=== PATIENT | male | born 1940 | race Caucasian/White ===

== ENCOUNTER 2022-06-23 21:34 | Inpatient (IN) | payer OTHER, SELFPAY ==
[2022-06-23] VITALS (11 sets, daily range): BP systolic 86–119; BP diastolic 53–82; BMI 26.1
[2022-06-23 17:02] LABS: % Basophils 0.5 % (0-2); % Eosinophils 3.6 % (0-6); % Immature Granulocytes 0.5 % (0-0.5); % Lymphocytes 17.3 % (20.5-51.1); % Monocytes 9.3 % (1.7-9.3); % Neutrophils 68.8 % (42.2-75.2); Absolute Eosinophils 0.3 10^3/uL (0-0.7); Absolute Lymphocytes 1.4 10^3/uL (1.2-3.4); Absolute Monocytes 0.8 10^3/uL (0.1-0.6); Absolute Neutrophils 5.7 10^3/uL (1.4-6.5); Hematocrit 40.8 % (39.0-52.0); Hemoglobin 13.9 g/dL (13.0-18.0); Mean Corp Hgb Conc. 34.1 g/dL (33.0-37.0); Mean Corpuscular Hgb 34.3 pg (27.0-31.0); Mean Corpuscular Volume 100.7 fL (80.0-94.0); Mean Platelet Volume 9.6 fL (7.4-10.4); Nucleated Red Blood Cells % 0 % (-); Platelet Count 339 10^3/uL (130-400); Red Blood Cell Count 4.05 10^6/uL (4.70-6.10); Red Cell Dist. Width 13.8 % (11.5-14.5); White Blood Cell Count 8.3 10^3/uL (4.8-10.8)
[2022-06-23 17:15] LABS: ALT (SGPT) 21 U/L (0-50); Blood Urea Nitrogen 34 mg/dl (9-20); Calcium 8.9 mg/dl (8.4-10.2); Carbon Dioxide 27 mmol/L (22-30); Chloride 100 mmol/L (98-107); Estimated Creatinine Clearance 41 ml/min; Glomerular Filtration Rate 57.7; Glucose 149 mg/dl (65-99); Sodium 135 mmol/L (135-145); Total Bilirubin 1.1 mg/dl (0.2-1.3)
[2022-06-23 17:16] LABS: AST (SGOT) 40 U/L (17-59); Albumin 3.5 g/dl (3.5-5.0); Alkaline Phosphatase 104 U/L (38-126); Potassium 4.8 mmol/L (3.5-5.1); Total Protein 7.4 g/dl (6.3-8.2)
[2022-06-23 17:23] LABS: Covid-19 RAPID by NAA Negative (Negative)
[2022-06-23 17:26] LABS: Troponin I < 0.012 ng/ml
[2022-06-23] MEDS: DUONEB 3 ML INH (17:28)
--- NOTE | 2022-06-23 17:35 | ED.GENMED ---
History of Present Illness
General
Chief Complaint: Breathing Problem
Source: patient, records, daughter and assisted records
Exam Limitations: none
Time Seen by Provider: 06/23/22 17:04
Nursing documentation reviewed up to this point in time: agreed with
Travel History
Have you had any contact with someone who has COVID-19?: No
Do you have any symptoms of coronavirus? Fever > 100 degrees, chills, cough, shortness of breath, sore throat, loss of taste or smell, muscle aches, or headache?: Yes
Symptoms:: SOB
History of Present Illness
History of Present Illness:
Is an 82-year-old male with a history of of dementia, congestive heart failure, permanent atrial fibrillation, chronic kidney disease, aortic stenosis with mitral regurgitation, hypertension diabetes presents for increasing lethargy and apparent
shortness of breath today. Patient feels more congested. Patient denies any chest pain. Patient reportedly has not had any fever or chills. According to the patient's daughter he seems more lethargic and more congested than when he was
discharged 2 days ago. Patient reportedly has not had a fever. Patient has not had any vomiting or diarrhea. Patient denies any abdominal pain or nausea. Patient has noted his lower extremities to be more swollen. Patient has 2 different
medical record numbers and this was reported to registration
Past History
Past History
ED Past Medical History: Arrthythmia (Atrial fib), CHF, CVA, GERD, HTN, Hypercholesterolemia, IDDM and Other (Dementia, anemia, Lambert-Eaton syndrome, depression, chronic kidney disease, DNR)
ED Past Surgical History: Orthopedic (Knee replacement right)
Social History
Tobacco: Former smoker
Alcohol: None
Personal:
Living: assisted ([facility])
Review of Systems
Review of Systems
Unable to obtain full review of systems at this time due to: dementia
Constitutional: Reports fatigue; Denies fever or chills
EENT: Reports no symptoms
Respiratory: Reports cough and trouble breathing
Cardiac: Denies chest pain
ABD/GI: Denies abdominal pain, nausea, vomiting or diarrhea
: Reports no symptoms
Musculoskeletal: Reports edema
Neurological: Reports other (Increased lethargy)
Phy Exam
Physical Exam
Physical Exam:
Physical Exam
General: Mild to moderate distress, alert to verbal stimuli but appropriate, well nourished, well hydrated
HENT: Normocephalic, supple with no lymphadenopathy, no thyromegaly
Eyes: Clear sclera, conjuctiva without injection
Heart: ar irregular irregular rhythm and tachycardic rate. No S3, S4. Systolic murmur.. No NVD
Lungs: mild to moderate respiratory distress, no stridor, lung sounds with inspiratory and expiratory wheezing as well as rhonchi throughout but equal bilaterally
Abdomen: Soft, nontender, BS good
Neuro: Alert to verbal stimuli but appropriate, CN II - XII intact, no motor focality
Skin: no rash
Psychiatric: well kept. interactive and cooperative
Extremities: No cyanosis, tenderness. Bilateral pretibial, ankle and pedal edema
Scores
Heart Failure Risk
Heart Failure Risk Score: Not Applicable
Heart Score for Chest Pain Patients
STEMI patient?: Not applicable
Withdrawal Assessment of Alcohol
Withdrawal Assessment Completed?: Not applicable
Course
Orders/Labs/Results
Orders:
Orders
06/23/22 Dinner
1800 calorie (15 carb) Diabetic
At Your Request: Limited, Digital Camera Technician Required
Does patient need a safe tray?: No
Diabetic Diet: Sodium, 2 Gram
06/23/22 16:48
Electrocardiogram (*1) Urgent
Reason for Study: Shortness of Breath
EKG- Treatment ONCE
06/23/22 16:55
CMP [Comprehensive Metabolic Panel] Urgent
Complete Blood Count/With Diff Urgent
Covid-19 RAPID by JOSELITO Urgent
Source: Nasal Swab
Reason for Covid Test: Surveillance
NT-proBNP Urgent
Comment: ADD ON
Troponin I Urgent
Influenza A+B Rapid Molecular Urgent
UCHE Source: Nasal Swab
Specimen Description:
06/23/22 17:17
Ipratropium/Albuterol Sulfate [Duoneb] 3 ml INH R NOW ONE
06/23/22 17:18
CR Chest - 2 Views Urgent
Comment:
Reason For Exam: sob, congested
O2 Therapy [RESP] Urgent
Nasal Cannula Liter Flow: 2 LPM
06/23/22 17:20
Add On- LAB Urgent
Tests Added?: pro-bnp
06/23/22 19:14
Urinalysis Reflex To Culture Urgent
Date Specimen was Collected: 06/23/22
Time Specimen was Collected: 19:12
Urine Microscopic Reflex Cult Urgent
Urine Culture Urgent
UCHE Source: U
Specimen Description:
Date Specimen was Collected: 06/23/22
Time Specimen was Collected: 19:12
06/23/22 19:31
0.9% Sodium Chloride 500 ml [Nss] 500 ml IV BOLUS
Diltiazem HCl [Cardizem] 10 mg IV NOW STA
06/23/22 19:45
Diltiazem 125 mg/125 ml Nss [Cardizem] 125 mg in 125 ml IV PER PROTOCOL
Dose for Titration in mg/hr:: 5
Titrate to keep:: Heart rate 80-100 bpm
Titrate by mg/hr:: 5 mg/hr
Frequency of titrations (minutes):: 15
Maximum dose in mg/hr:: 15
06/23/22 21:14
Acetaminophen [Tylenol] 650 mg PO Q6HPRN PRN
Ipratropium/Albuterol Sulfate [Duoneb] 0.5 ml INH R BIDPRN PRN
06/23/22 21:16
Code Status As Directed
Resuscitation Status: Full Code
HF DIETARY CONSULT Routine
HF EDUCATOR CONSULT Routine
Comment:
VTE Contraindication Routine
VTE Mechanical Device Contraindication: Medical Contraindication
Pharmocologic Contraindication: Medical Contraindication
Activity As Directed
Activity Level: As Tolerated
Intake/ Output As Directed
Frequency: Per unit guidelines
Patient Education As Directed
Type: CHF folder
Comment: give on admission. Document in Interdisciplinary Education record
Sleep Apnea Assessment by RN As Directed
Comment:
Physician Instructions:
Vital Signs As Directed
Frequency: Per unit guidelines
Weight As Directed
Frequency: Daily
Type of Scale: Standing Scale
Comment: Daily morning weight. If unable to stand, use balanced bed scale.
Weight As Directed
Frequency: Once
Type of Scale: Standing Scale
Comment: Upon Admission. If unable to stand, use balanced bed scale.
O2 Therapy [RESP] Routine
Pulse Ox/cont/shift [RESP] Routine
Quantity: 1
Special Instructions: Daily pulse oximetry at rest. If greater than 92% at rest also obtain pulse oximetry
while ambulating as tolerated.
06/23/22 21:18
Echo 2D MMode Color/Doppler Routine
Reason for Study: heart failure
CARDIOLOGY CONSULT Routine
Consulting Provider: Baron Jerez
Was physician already notified: Yes
Reason for consult: AFIB RVR, CHF exacerbation
06/23/22 21:20
Bedside Glucose Monitoring As Directed
Frequency: AC&HS
06/23/22 21:26
Admit/Transfer Patient As Directed
Co-Sign Provider:
Level of Care: Inpatient admission
Assign to:: Telemetry
Physician / Group: Hospitalist
Diagnosis: AFIB RVR, HF, UTI
Reason for Telemetry: Medication for Arrhythmia
Date to Stop Telemetry: 06/25/22
Time to Stop Telemetry: 11:00
Reason for Hospitalization: AFIB RVR, CHF
Expected length of stay greater than two midnights?: Yes
ELOS- Estimated Length of Stay in days: 2
I certify the patient meets the requirements for IP care: Yes
06/23/22 21:30
CefTRIAXone [Rocephin] 1,000 mg IV NOW STA
06/23/22 22:00
Insulin Glargine Lantus [Lantus] 10 units Subcutaneous Insulin Syringe [Syringe-Insulin] 0 unit SC HS
06/24/22 06:00
Basic Metabolic Panel IN AM
Complete Blood Count/No Diff IN AM
Magnesium IN AM
06/24/22 07:30
Insulin Aspart Corrective Low [Novolog Flexpen-Low Resistance] See Protocol SC AC
06/24/22 08:00
Polyethylene Glycol Powder [Miralax] 17 grams PO DAILY
Potassium Chloride [KCl] 20 meq PO BID
Potassium Chloride [KCl] 20 meq PO DAILY
Sertraline HCl [Zoloft] 50 mg PO DAILY
06/24/22 18:00
Rivaroxaban [Xarelto] 15 mg PO QPM
06/24/22 22:00
CefTRIAXone [Rocephin] 1,000 mg IV Q24H
06/25/22 06:00
Basic Metabolic Panel IN AM
06/25/22 11:00
DC Protocol for Telemetry ONCE
DC Protocol for Telemetry ONCE
06/26/22 06:00
Basic Metabolic Panel IN AM
Abnormal Lab Results
06/23/22 06/23/22 06/23/22
16:55 16:55 19:14
RBC 4.05 10^6/uL L 10^6/uL
(4.70-6.10)
MCV 100.7 fL H fL
(80.0-94.0)
MCH 34.3 pg H pg
(27.0-31.0)
Absolute Monos (auto) 0.8 10^3/uL H 10^3/uL
(0.1-0.6)
Lymphocytes % 17.3 % L %
(20.5-51.1)
BUN 34 mg/dl H mg/dl
(9-20)
Glucose 149 mg/dl H mg/dl
(65-99)
Urine Ketones Trace A
(Negative)
Ur Occult Blood Reflex 2+ A
(Negative)
Leukocyte Esterase Rfl 2+ A
(Negative)
Urine RBC 7-10 /HPF A /HPF
(0-2)
Urine WBC (Reflex) >100 /HPF A /HPF
(0-5)
Urine Bacteria (Reflex) Many A
(Negative)
Urine Albumin (Reflex) 1+ A
(Neg - Trace)
06/23/22 16:55
06/23/22 16:55
Vital Signs
Initial and Last Documented VS:
Initial Vital Signs
Temp Pulse Resp BP Pulse Ox
97.9 F 110 21 102/53 100
06/23/22 16:44 06/23/22 16:44 06/23/22 16:44 06/23/22 16:44 06/23/22 16:44
Last Documented Vital Signs
Temp Pulse Resp BP Pulse Ox
97.6 F 104 19 110/64 95
06/23/22 19:12 06/24/22 00:00 06/24/22 00:00 06/24/22 00:00 06/24/22 00:00
MDM/Problems Addressed
MDM/Problems Addressed:
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 Patient was just discharged from the hospital 2 days ago for similar episodes. However that now the patient's heart rate is
elevated and has atrial fibrillation with RVR and hypotension. Chest x-ray does not look unchanged. Patient has no signs of infection. Given the hypotension and atrial fibrillation patient will be admitted. The patient's charts will need to be
merged. Patient's BMP is essentially baseline
*Radiology
Radiology exam reviewed: radiology report reviewed
*Pulse Oximetry
Patient hypoxic: no
*EKG
Interpreted by ED Provider?: Yes
EKG Intrepretation Date: 06/23/22
EKG Intrepretation Time: 17:47
Interpretation: abnormal
Comparison EKG: no changes
Heart Rate: 120
Rate: tachycardiac
Rhythm: a-fib
[place]: normal axis
Interval: normal QT interval
QRS Pattern: normal QRS
Ischemia: non-specific ST changes
*[employer] Targeting Supervisor Interpretation
Rate: tachycardiac
Interpretation: abnormal
Heart Rate: 110
Rhythm: a-fib
*Critical Care Note
Total Time (30-74mins, 75-104mins- exclusive of procedures): Not Applicable
Discharge Plan
Departure
Patient Disposition: Admit
Date of Disposition: 06/23/22
Time of Disposition: 20:13
Admit to: Telemetry
Admit to doctor: Hospitalist
Patient with high blood pressure during this ER visit?: No
Condition: Fair
Covid-19: Not Applicable
Discharge Problem:
Atrial fibrillation with rapid ventricular response, Hypotension, Acute alteration in mental status
Interventions
Interventions:
*Risk Screen - Suicide Last Done: 06/23/22 16:44
*General Assessment Last Done: 06/23/22 16:44
*Neglect/Abuse Screening Last Done: 06/23/22 16:44
ED- Fall Risk Assessment Last Done: 06/23/22 20:14
*ED COVID-19 Vaccine History Last Done: 06/23/22 16:44
ED- Cardiac Assessment Last Done: 06/23/22 20:07
ED- Pulmonary Assessment Last Done: 06/23/22 20:07
[2022-06-23 17:54] LABS: NT-proBNP 4330 pg/ml
--- NOTE | 2022-06-23 17:54 | PHANOTE ---
Addendum entered by Christy Jauregui 06/23/22 19:08:
med rec- longterm called back, verified medication and they stated his Xarelto 15mg daily@0800 was discontinue
Original Note:
med rec- missing pages on longterm medication list, called and waiting for new medication list
[2022-06-23 19:26] LABS: Urine Albumin 1+ (Neg - Trace); Urine Bilirubin Negative (Negative); Urine Character Slightly Cloudy (Clear); Urine Color Yellow; Urine Glucose Negative (Negative); Urine Ketone Trace (Negative); Urine Leukocyte 2+ (Negative); Urine Nitrite Negative (Negative); Urine Occult Blood 2+ (Negative); Urine Urobilinogen 1+ (Neg - 1+)
[2022-06-23] MEDS: NSS 500 IV (19:47)
[2022-06-23 19:48] LABS: Urine Bacteria Many (Negative); Urine White Cell >100 /HPF (0-5)
[2022-06-23] MEDS: CARDIZEM 10 MG IV (19:57)
[2022-06-23] MEDS: CARDIZEM 125 IV (20:05)
--- NOTE | 2022-06-23 21:30 | HPS.HSE ---
Addendum entered and electronically signed by Chela Brody MD 08/18/22 11:55:
Allergies
Allergy/AdvReac Type Severity Reaction Status Date / Time
No Known Allergies Allergy Verified 06/24/22 10:59
Home Medications
Lactobacillus acidophilus 1.5 mg (250 million cell) capsule (Probiotic Acidophilus) 1 mg PO DAILY Gastrointestinal issue 06/24/22
acetaminophen 325 mg tablet 650 mg PO Q6HPRN PRN mild pain 06/24/22
diltiazem HCl 240 mg capsule,extended release 24 hr 240 mg PO DAILY 06/24/22
furosemide 40 mg tablet 40 mg PO BID Fluid retention/Swelling 06/24/22
insulin glargine 100 unit/mL subcutaneous solution 8 unit SC DAILY Diabetes 06/24/22
insulin lispro 100 unit/mL subcutaneous pen 1 sliding scale dose SC DIRECTED Diabetes 06/24/22
levothyroxine 25 mcg tablet 25 mcg PO DAILY Thyroid 06/24/22
melatonin 10 mg capsule 10 mg PO HS Sleep 06/24/22
polyethylene glycol 3350 17 gram oral powder packet (Miralax) 17 g PO DAILY Constipation 06/24/22
potassium chloride 20 mEq tablet,extended release 20 meq PO BID Electrolyte Repletion 06/24/22
sertraline 50 mg tablet 50 mg PO DAILY Depression 06/24/22
sodium chloride 1,000 mg soluble tablet 1,000 mg PO BID Electrolyte Repletion 06/24/22
Original Note:
Family Physician
-
Family Physician: Satinder Owusu
Chief Complaint
-
Lethargy, hypotension and pulmonary congestion
History of Present Illness
Patient is an 82-year-old male with past medical history significant for atrial fibrillation on anticoagulation with Xarelto, CHF, diabetes and recurrent urinary tract infections who presents to the emergency department with lethargy
hypotension and rapid atrial fibrillation.
Patient unable to provide significant history in part due to his dementia and debilitated status and is lethargy. Daughter was at the bedside provided some history. According to patient was [facility] from [facility] for approximately worsening
lethargy. He was unable to eat due to feeling sleepy all the time. No fevers noted at the [facility]. He did not complain of any back pain flank pain abdominal pain dysuria or hematuria. He had no nausea or vomiting. No documented fevers.
Been compliant with his medications. Apparently blood pressure was checked today and patient was found to be hypotensive. When EMS arrived his pulse was actually rate controlled. Patient did feel short of breath and felt as though he could not
catch her breath.
In the emergency department he was afebrile, blood pressure was in the low 100s, oxygen saturation was 96% on room air and his pulse rate was in the 120s. ECG shows A. fib with rapid ventricular rate at 129 and known T wave inversions in V4 through
6. CBC was unremarkable. Chemistries mostly unremarkable. Troponin was negative. COVID was negative. UA was positive.
Patient started on diltiazem drip.
Medical History
Past Medical History
Past Medical History: Reports Arrhythmia and CHF
Past Surgical History: Reports None
Social History
Unable to obtain full social history at this time due to: Acuity
Tobacco: Non-smoker
Alcohol: None
Drug: None
Living: [facility]
Employment: Retired
Family History
Family History: Unable to Obtain
Allergies / Home Medications
Allergies reflects when Allergies were last updated in [facility].
Home Medications with original date entered in [facility]
Allergy/Medication List:
NKDA
Review of Systems
-
History Source: Family
Constitutional: Reports Not Done
EENT: Reports No Symptoms
Respiratory: Reports Trouble Breathing
Cardiac: Reports See HPI
Abdomen/GI: Reports No Symptoms
: Reports No Symptoms
Musculoskeletal: Reports No Symptoms
Skin: Reports No Symptoms
Neurological: Reports Weakness
Endocrine: Reports No Symptoms
Hematologic/Lymphatic: Reports No Symptoms
Psych: Reports No Symptoms
Physical Exam
Vital Signs
Vital Signs
Temp Pulse Resp BP Pulse Ox
97.6 F 117 30 101/65 96
06/23/22 19:12 06/23/22 21:00 06/23/22 21:00 06/23/22 21:00 06/23/22 21:00
Physical Exam
General: Well Developed and Comfortable
HEENT: NormoCephalic, Anicteric, Moist mucous membranes and PERRLA
Respiratory: Wheezes
Cardiac: S1/S2, Irregular Rhythm and Tachycardia
Breast: N/A
GI: Soft, Non Tender, Non Distended and Normal Bowel Sounds
Rectal: Deferred by Provider
Genito-urinary: No costovertebral tender
Musculoskeletal: No Clubbing, No Cyanosis, Edema, Left Lower Extremity and Edema, Right Lower Extremity
Skin: Warm and Dry
Neuro: Awake
Hematologic/Lymphatic: Lymphadenopathy
Psych: Calm
Laboratory Results
-
06/23/22 16:55
06/23/22 16:55
Laboratory Results
Total Bilirubin 1.1 mg/dl (0.2-1.3) 06/23/22 16:55
AST 40 U/L (17-59) 06/23/22 16:55
ALT 21 U/L (0-50) 06/23/22 16:55
Alkaline Phosphatase 104 U/L (38-126) 06/23/22 16:55
Troponin I < 0.012 ng/ml 06/23/22 16:55
Data Reviewed
-
Diagnostic Radiology: Image Personally Visualized and interpreted and Report Reviewed by me
Medical Tests (Nuc Med, Echo, EKG etc): Image Personally Visualized and interpreted and Report Reviewed by me
Lab Data: Labs Reviewed by me
Old Records: Reviewed
Impression/Plan
-
IMPRESSION:
82-year-old male with past medical history of atrial fibrillation, congestive heart failure, diabetes multiple recent admissions with urinary tract infection and A. fib RVR who presents to the emergency department with lethargy hypotension
and A. fib RVR.
PLAN:
1. CHF - Chest x-ray with bilateral pleural effusions which is worse than previous. Slight elevation in JVD. Bilateral lower extremity edema worse on the right. C/w mild to moderate CHF exacerbation. BNP 4000. Trop is negative. Increased wob
and mild wheeze likely cardiac in origin. Suspect CHF is secondary to uncontrolled atrial fibrillation.
- admit to telemetry
- rate control as below
- as bp tolerates will attempt to increase diuresis with lasix 40mg iv bid
- echo in am cards consulted and notified
2. AFIB RVR - Patient with chronic persistent afib. Prior admission with RVR requiring amio.
- tolerating diltiazem gtt at 5, titrate up as tolerated.
- if bp is not hold, advised amio
- continue Xarelto 15mg daily
3. Cystitis - U/A is markedly positive. UTI likely contributing to lethargy
- prior cultures with sensitive Klebsiella.
- urine cultures, Ceftriaxone 1g daily for now
- blood culture if febrile
4. DM II -
- lantus 10 hs with low dose sliding scale.
DVT PPX - On xarelto for afib
Full Code
[2022-06-23 22:23] LABS: Glucose - Point of Care 135 mg/dl (65-99)
[2022-06-23] MEDS: LANTUS 0.100000000000000006 UNITS SC (22:29)
[2022-06-23] MEDS: STERILE WATER FOR INJECTION 10 ML IV (22:36)
[2022-06-23] MEDS: ROCEPHIN 1000 MG IV (22:36)
[2022-06-24] VITALS (17 sets, daily range): BP systolic 89–131; BP diastolic 48–98; PULSE 2–109; BMI 25.6
--- NOTE | 2022-06-24 00:59 | EDRN ---
Orders processed and pharmacy informed
[2022-06-24 06:20] LABS: Hematocrit 35.8 % (39.0-52.0); Hemoglobin 12.2 g/dL (13.0-18.0); Mean Corp Hgb Conc. 34.1 g/dL (33.0-37.0); Mean Corpuscular Hgb 33.9 pg (27.0-31.0); Mean Corpuscular Volume 99.4 fL (80.0-94.0); Mean Platelet Volume 9.6 fL (7.4-10.4); Platelet Count 296 10^3/uL (130-400); Red Cell Dist. Width 13.7 % (11.5-14.5)
[2022-06-24 07:11] LABS: Blood Urea Nitrogen 31 mg/dl (9-20); Calcium 8.5 mg/dl (8.4-10.2); Carbon Dioxide 28 mmol/L (22-30); Chloride 101 mmol/L (98-107); Estimated Creatinine Clearance 41 ml/min; Glomerular Filtration Rate 57.7; Glucose 86 mg/dl (65-99); Potassium 3.7 mmol/L (3.5-5.1); Sodium 137 mmol/L (135-145)
[2022-06-24 07:37] LABS: Glucose - Point of Care 82 mg/dl (65-99)
[2022-06-24 08:09] LABS: Glucose - Point of Care 94 mg/dl (65-99)
[2022-06-24] MEDS: ZOLOFT 50 MG PO (09:42)
[2022-06-24] MEDS: MIRALAX 17 GRAMS PO (09:42)
[2022-06-24] MEDS: LASIX 40 MG IV ×2 (09:42→16:04)
[2022-06-24] MEDS: KCL 20 MEQ PO (09:42)
[2022-06-24] MEDS: FLUSH (NSS) 1 FLUSH IV ×2 (09:43→16:05)
[2022-06-24 11:26] LABS: Glucose - Point of Care 160 mg/dl (65-99)
--- NOTE | 2022-06-24 11:52 | CM ---
Addendum entered by Lizbeth Chavis 06/24/22 12:33:
Spoke to [facility] and baseline confirmed. Of note, patient on pureed, thin liquid diet. Will monitor o2 requirements at d/c.
Original Note:
Reviewed chart. Patient admitted w/ cardiac concern. Cardiology following. He is currently on 2L o2 (new).
Met with dgtr/Jennifer at bedside; confirmed plan for return to [facility] when ready.
Left message for Lia at [facility] to confirm baseline.
Per chart review, patient moved into [facility] 05/09/22 and resides in the memory unit.
He is max assist of 1-2 for transfers, primarily w/c level and can self propel.
Hx of [facility] for PT/OT/ST, and [facility] for nsg; will refer back as appropriate.
D/C Plan: Return to [facility]
Fax#s for d/c paperwork:
[facility]:[phone]
[facility]:
[facility]: [phone]
--- NOTE | 2022-06-24 11:57 | W.PN.HOSP.TC ---
Today's Communication/Plan
-
Pt was placed on 2 L NC, wean as tolerated.
Cont IV Lasix 40 BID (PLANNING AND ANALYSIS MANAGER 40mg PO BID), monitor daily weight.
Cont telemetry monitoring.
echo ordered.
Card CS.
Check Chest US for BL thoracentesis.
cont Cardizem drip
change diet to pureed
SPL eval
Assessment / Plan
Assessment / Plan
82-year-old male with past medical history significant for atrial fibrillation on anticoagulation with Xarelto, CHF, diabetes and recurrent urinary tract infections who presents to the emergency department with lethargy, hypotension and
rapid atrial fibrillation.
Patient unable to provide significant history in part due to his dementia and debilitated status and is lethargy. Daughter was at the bedside provided some history. According to patient was sent in from senior care for approximately worsening
lethargy. He was unable to eat due to feeling sleepy all the time. No fevers noted at the senior care. He did not complain of any back pain, flank pain, abdominal pain, dysuria or hematuria. He had no nausea or vomiting. No documented fevers.
Been compliant with his medications. Apparently blood pressure was checked and patient was found to be hypotensive. When EMS arrived his pulse was actually rate controlled. Patient did feel short of breath and felt as though he could not catch her
breath.
In the emergency department, he was afebrile, blood pressure was in the low 100s, oxygen saturation was 96% on room air and his pulse rate was in the 120s. ECG shows A. fib with rapid ventricular rate at 129 and known T wave inversions in V4 through
6. CBC was unremarkable. Chemistries mostly unremarkable. Troponin was negative. COVID was negative. UA was positive.
Patient was started on diltiazem drip.
A/P:
# Acute on chronic systolic and diastolic HF
# Moderate to severe , not a candidate for TAVR.
# Small-moderate bilateral pleural effusions with associated compressive atelectasis at both lung bases
# Acute hypoxic resp insufficiency
Pt was placed on 2 L NC, wean as tolerated.
BNP 4000.
Trop is negative.
Suspect CHF is secondary to uncontrolled atrial fibrillation (see below).
Cont IV Lasix 40 BID (PLANNING AND ANALYSIS MANAGER 40mg PO BID), monitor daily weight.
Cont telemetry monitoring.
rate control as below.
echo ordered.
Card CS.
Check Chest US for BL thoracentesis.
# permanent AFIB with RVR
cont Cardizem drip
Xarelto was discontinued recently due to fall risk and GOC etc.
# Cystitis and likely UTI
Follow urine Cx
Cont Ceftriaxone 1g daily for now
# Insulin-requiring diabetes.
Lantus was decreased to 8 units recently, cont
cover with low dose sliding scale.
# Chronic kidney disease stage 3B, with baseline creatinine of 1.3.
# Essential hypertension.
# Anemia of chronic disease.
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
# CVA (2014)
# Depression
# Chronic dysphagia on pureed diet per family
cont Pureed
SPL eval
Code status : do not resuscitate, confirmed with son and DIL on the phone
DVT PPX - HSQ
updated son and DIL on the phone
Anticipated Discharge: > 48 hours
Subjective/Interval History
-
no event overnight, comfortable
Objective Data
-
Labs:
Laboratory Results
06/24/22 06/24/22
05:34 05:34
WBC 9.0
Hgb 12.2 L
Hct 35.8 L
Plt Count 296
Sodium 137
Potassium 3.7
Chloride 101
Carbon Dioxide 28
BUN 31 H
Creatinine 1.2
Glucose 86
Calcium 8.5
Vital Signs:
Vital Signs
Temp Pulse Resp BP Pulse Ox
36.2 C 110 20 117/74 94
06/24/22 07:20 06/24/22 09:42 06/24/22 07:20 06/24/22 09:42 06/24/22 09:33
I&O
06/23/22 06/24/22 06/25/22
06:59 06:59 06:59
Intake Total 120 / 120
Balance 120 / 120
Review of Systems
-
Unable to obtain full review of systems at this time due to: Dementia and Other (confused)
Physical Exam
-
General: Well Developed, Well Nourished and Comfortable
HEENT: Normocephalic, Atraumatic and Moist Mucous Membranes
Respiratory: Clear to Auscultation and Non Labored Respirations; Negative Accessory Resp Muscle Use
Cardiac: S1/S2, Irregular Rhythm and Tachycardic; Negative Murmur, Rub or Gallop
GI: Soft, Nontender, Nondistended and Normal Bowel Sounds; Negative Organomegaly
Rectal: Deferred by Provider
Musculoskeletal: No Clubbing, No Cyanosis and No Edema
Skin: Warm and Dry; Negative Rash
Neuro: Awake, Alert and Nonfocal/Grossly Intact; Negative AO x 3
Psych: Calm and Apparent Dementia; Negative Intact Judgement/Insight
Data Reviewed
-
Labs: Labs Reviewed by me
--- NOTE | 2022-06-24 12:17 | W.PN.CARD.2 ---
Today's Communication / Plan
-
-Was on Cardizem CD2 140 mg daily at home.
-Continue Cardizem drip for now.
-It has been recommended on his recent admission that systemic anticoagulation be discontinued secondary to fall risk.
-Continue Lasix 40 mg IV BID.
Assmnt/Subjective-Int Hx
-
Assessment/Plan:
82-year-old man with HFmEF, aortic stenosis,�permanent AFib (first seen 08/2021; not on systemic anticoagulation secondary to fall risk), type 2 diabetes mellitus, chronic anemia, hyperlipidemia, CVA (2014), BPH, GERD, Lambert�Eaton syndrome,
dementia and chronic LLE DVT admitted with change in mental status; found to be in A. fib with RVR.
Permanent A. fib with RVR:
-Was on Cardizem CD2 140 mg daily at home.
-Continue Cardizem drip for now.
-It has been recommended on his recent admission that systemic anticoagulation be discontinued secondary to fall risk.
Acute on chronic HFmEF (EF 40-45%):
-Continue Lasix 40 mg IV BID.
Moderate/severe .�
-Not a reasonable candidate for TAVR.
Multi-valvular heart disease:
-Mild to moderate aortic regurgitation/severe MR/severe TR; pulmonary HTN.
-Conservative management; continue Lasix.
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
CVA (2014)
DM
Hx of CKD
Subjective:
Patient is awake, but a bit confused this a.m. as to where he is. No cardiac complaints. Remains in A. fib and with heart rates of 100-120s.
Interval History
Interval History
Date of Service: June 24, 2022
Chief Complaint
-
Chief Complaint: Arrhythmia F/U (A. fib) and Valvular HD F/U
Review of Systems
Review of Systems
Review of Systems: Negative for Chest Pain, Negative for Dyspnea and Negative for Palpitations
Physical Exam
Vital Signs
Vital Signs
Temp Pulse Resp BP Pulse Ox
97.6 F 89 22 109/48 95
06/24/22 11:15 06/24/22 11:15 06/24/22 11:15 06/24/22 11:15 06/24/22 11:15
06/23/22 06/24/22 06/25/22
06:59 06:59 06:59
Actual Weight 71.985 kg
Body Mass Index (BMI): 25.6
Physical Exam
Constitutional: No acute distress
EENT: Anicteric
Cardiovascular: Pedal edema is absent, Rhythm/rate is irregular, Systolic murmur present (/) and S1S2 is normal
Respiratory: Respiratory effort normal
GI: Soft
Neuro/Psych: Alert
Other: Skin (warm, dry)
Data Reviewed
-
Results:
I&O
06/22/22 06/23/22 06/24/22 06/25/22
06:59 06:59 06:59 06:59
Intake Total 120 / 120
Balance 120 / 120
Telemetry Tracings: I personally reviewed (AFIB)
Labs:
06/24/22 05:34
06/24/22 05:34
LAB Results
06/23/22
16:55
Troponin I < 0.012
Magnesium 2.0 mg/dl (1.6-2.3) 06/24/22 05:34
06/23/22 06/23/22
16:55 17:17
Ghg-D-Aairvlezakp Pept 4330 Cancelled
[2022-06-24] MEDS: CARDIZEM 125 IV (12:29)
--- NOTE | 2022-06-24 15:40 | PTOTSP ---
Patient presents with signs concerning for mild oral stage dysphagia characterized by prolonged mastication of solids (but functional breakdown) and decreased efficiency of anterior to posterior oral transfers as evidenced by mild-moderate diffuse
residue on lingual surface post swallow. Residue could be reduced to mild amount with thin liquid washes.
Of note, patient had wheezing and frequent coughing throughout evaluation which was present prior to, during, and after PO. Patient had video swallow study 04/10/2022 revealed mild oral/pharyngeal dysphagia with transient deep laryngeal penetration
of thin liquids via cup but no aspiration. Frequent coughing was noted in absence of PO at that time. Suspect coughing this date is unrelated to swallowing function. Patient afebrile, WBC WNL. CXR with small-moderate b/l pleural effusions with
compressive atelectasis at lung bases.
Given prolonged mastication and admission with acute illness with led to transient difficulty eating, recommend advancing diet no more than Dysphagia Level 2 at this time.
Recommend:
1. Dysphagia 2, Thin Liquids
2. Supervision with PO intake
3. Strategies: small single sips/bites, slow rate, alternate solids/liquids
4. Medications in puree
5. Continue dysphagia tx at the acute care level.
--- NOTE | 2022-06-24 15:49 | PTOTSP ---
Addendum entered and electronically signed by ST Johnny 06/24/22 16:46:
Spoke with MD at 16:19 who will continue diet as ordered (pureed, thin liquid diet) as this was patient's baseline diet at [facility].
Original Note:
Patient presents with signs concerning for mild oral stage dysphagia characterized by prolonged mastication of solids (but functional breakdown) and decreased efficiency of anterior to posterior oral transfers as evidenced by mild-moderate diffuse
residue on lingual surface post swallow. Residue could be reduced to mild amount with thin liquid washes.
Of note, patient had wheezing and frequent coughing throughout evaluation which was present prior to, during, and after PO. Patient had video swallow study 04/10/2022 revealed mild oral/pharyngeal dysphagia with transient deep laryngeal penetration
of thin liquids via cup but no aspiration. Frequent coughing was noted in absence of PO at that time. Suspect coughing this date is unrelated to swallowing function. Patient afebrile, WBC WNL. CXR with small-moderate b/l pleural effusions with
compressive atelectasis at lung bases.
Given prolonged mastication, recommend advancing diet no more than Dysphagia Level 2 at this time.
Recommend:
1. Dysphagia 2, Thin Liquids
2. Supervision with PO intake
3. Strategies: small single sips/bites, slow rate, alternate solids/liquids
4. Medications in puree
5. Continue dysphagia tx at the acute care level.
[2022-06-24] MEDS: HEPARIN 5000 UNITS SC ×2 (16:03→23:00)
--- NOTE | 2022-06-24 16:11 | PTCARENOTE ---
Pt AAO to self, at times to place, very forgetful; confused conversation at times. MONTEZ well. VSS. Telemetry:A fib to 120's with activity. Currently on room air- pulseox 94%, pt with (+) harsh, raspy cough, scattered wheezes/rhonchi. denies SOB,
has (+) LAU. Abd large, soft, feliciano PO; placed on dysphagia I diet pending speech eval. Incont large amts urine. Cardizem drip currently infusing @ 5 mg/hr ( 5 ml/hr) via Rt AC site without sx of infiltration. restin gin bed at present. Will
continue to monitor.
[2022-06-24] MEDS: DUONEB 0.5 ML INH (16:12)
[2022-06-24 17:11] LABS: Glucose - Point of Care 178 mg/dl (65-99)
--- NOTE | 2022-06-24 17:13 | PTCARENOTE ---
Pt restless, attempting to climb OOB; stating 'Just get me out of here'. Pt with marked LAU/tachypnea; lungs with coarse BS/wheezes throughout. pt with frequent harsh, non-productive cough. Telemetry currently showing a fib 140's to 170's. Pt
incont large amts urine and BM. Dr. Mccauley notified of pt status; up to see pt. Pt for ABG and CXR. Pending transfer to IMU.
--- NOTE | 2022-06-24 17:15 | W.PN.UPDATE ---
Addendum entered and electronically signed by Alexia Mccauley MD 06/24/22 17:22:
Total Critical Care Time__40__ minutes. I was immediately available to the patient and staff. I personally examined, reviewed labs, diagnostic images/reports, interpretations, treatment plans, discussed patient care with other providers and
family or caregivers (if patient is unable to make decisions), entered orders as appropriate and documented the medical record.
Original Note:
Update Note
Progress Note Update
Called by nurse evaluate patient at bedside for labored breathing.
Patient seen and examined at bedside. He is currently using accessory muscles for breathing. He saturation is 94% on 2 liter nasal cannula.
Patient just received duo nebs at 4 pm, and his heart rate currently as high as 140, irregular rate/ A. fib rhythm.
Will check stat chest x-ray, arterial blood gas, switched to BiPAP mask for acute CHF, continue Cardizem drip, change DuoNeb to levalbuterol/ipratropium to ameliorate increased heart rate.
Upgrade to IMU.
RN informed of plan.
Family/son updated on the phone.
The patient's CODE STATUS is DNR/DNI.
[2022-06-24 17:53] LABS: B.E. 1.7 mmol/L; HCO3 25.8 mmol/L (21-28); PCO2 38 mmHg (35-48); PO2 101 mmHg (83-108); pH 7.44 (7.35-7.45)
--- NOTE | 2022-06-24 18:55 | PTCARENOTE ---
Pt transferred to IMU [id number] via bed, on telemetry and nc 3 lpm. Report given to Kalyani SANABRIA. All belongings taken with pt. Condition stable at time of transfer.
[2022-06-24] MEDS: ATROVENT NEBULES 0.5 MG INH (19:38)
[2022-06-24] MEDS: XOPENEX 1.25 MG INHALANT SOLUTION INH (19:38)
--- NOTE | 2022-06-24 21:04 | PTCARENOTE ---
Pt with increased WOB, audible rhonci. RT on floor to assess, placed on BiPAP at this time. IV cardizem titrated for HR - running at 15 mg/hr. Afib 100-120s on monitor. Will continue to closely monitor.
--- NOTE | 2022-06-24 21:36 | PTCARENOTE ---
Pt pulling off BiPAP mask and removing pulse ox. Continues in presence of RN despite education. VIDEO SOFTWARE ENGINEER covering house contacted, electronic orders received for bilateral mitts and 4 side rails. Mitts applied. Bed alarm active for safety. Will
continue to closely monitor.
[2022-06-24] MEDS: STERILE WATER FOR INJECTION 10 ML IV (22:26)
[2022-06-24] MEDS: ROCEPHIN 1000 MG IV (22:26)
[2022-06-24 22:33] LABS: Glucose - Point of Care 141 mg/dl (65-99)
[2022-06-24] MEDS: LANTUS 0.0500000000000000028 UNITS SC (22:59)
[2022-06-25] VITALS (25 sets, daily range): BP systolic 85–127; BP diastolic 39–94; PULSE 2–101; BMI 25.7
[2022-06-25] MEDS: CARDIZEM 125 IV ×3 (01:47→18:35)
[2022-06-25 05:09] LABS: Hematocrit 38.1 % (39.0-52.0); Hemoglobin 12.7 g/dL (13.0-18.0); Mean Corp Hgb Conc. 33.3 g/dL (33.0-37.0); Mean Corpuscular Hgb 33.4 pg (27.0-31.0); Mean Corpuscular Volume 100.3 fL (80.0-94.0); Mean Platelet Volume 9.8 fL (7.4-10.4); Platelet Count 298 10^3/uL (130-400); Red Cell Dist. Width 13.9 % (11.5-14.5); White Blood Cell Count 9.3 10^3/uL (4.8-10.8)
[2022-06-25 05:39] LABS: Blood Urea Nitrogen 29 mg/dl (9-20); Calcium 8.7 mg/dl (8.4-10.2); Carbon Dioxide 27 mmol/L (22-30); Chloride 99 mmol/L (98-107); Estimated Creatinine Clearance 41 ml/min; Glomerular Filtration Rate 57.7; Glucose 125 mg/dl (65-99); Potassium 4.1 mmol/L (3.5-5.1); Sodium 136 mmol/L (135-145)
[2022-06-25] MEDS: ATROVENT NEBULES 0.5 MG INH ×4 (07:53→19:27)
[2022-06-25] MEDS: XOPENEX 1.25 MG INHALANT SOLUTION INH ×4 (07:53→19:27)
--- NOTE | 2022-06-25 08:13 | W.PN.HOSP.TC ---
Today's Communication/Plan
-
Cont IV Lasix 40 BID, monitor daily weight.
Chest US confirmed pleural effusion, IRAD CS for BL thoracentesis. Follow thora labs.
Pt with increased work of breathing with worsening hypoxia on 06/24/22: 2 L NC -> BIPAP 15/5
ABG unrevealing
check repeat COVID and Flu
cont duonebs but replace albuterol with Levalbuterol
Add Mucinex and start vest therapy
change ceftriaxone to Zosyn to cover for potential aspiration pneumonia
Wean O2 as tolerated
cont Cardizem drip for now for A fib
Follow urine Cx
On Abx now Zosyn
Assessment / Plan
Assessment / Plan
82-year-old male with past medical history significant for atrial fibrillation on anticoagulation with Xarelto, CHF, diabetes and recurrent urinary tract infections who presents to the emergency department with lethargy, hypotension and
rapid atrial fibrillation.
Patient unable to provide significant history in part due to his dementia and debilitated status and is lethargy. Daughter was at the bedside provided some history. According to patient was sent in from [place] [facility] for approximately worsening
lethargy. He was unable to eat due to feeling sleepy all the time. No fevers noted at the [place] [facility]. He did not complain of any back pain, flank pain, abdominal pain, dysuria or hematuria. He had no nausea or vomiting. No documented fevers.
Been compliant with his medications. Apparently blood pressure was checked and patient was found to be hypotensive. When EMS arrived his pulse was actually rate controlled. Patient did feel short of breath and felt as though he could not catch her
breath.
In the emergency department, he was afebrile, blood pressure was in the low 100s, oxygen saturation was 96% on room air and his pulse rate was in the 120s. ECG shows A. fib with rapid ventricular rate at 129 and known T wave inversions in V4 through
6. CBC was unremarkable. Chemistries mostly unremarkable. Troponin was negative. COVID was negative. UA was positive.
Patient was started on diltiazem drip.
A/P:
# Acute on chronic systolic and diastolic HF
# Moderate to severe , not a candidate for TAVR.
# Small-moderate bilateral pleural effusions with associated compressive atelectasis at both lung bases
# Acute hypoxic respiratory failure
Pt was placed on 2 L NC -> BIPAP 15/5 due to work of breathing (see below).
BNP 4000.
Trop is negative.
Suspect CHF is secondary to uncontrolled atrial fibrillation (see below).
Cont IV Lasix 40 BID (PLUMBING AND HEATING [employer]OR 40mg PO BID), monitor daily weight.
Cont telemetry monitoring.
rate control as below.
echo: EF�43%, Diastolic�function indeterminate.�Compared to 09/10/2021, ventricular function is now mildly impaired, EF from 50-55% to 43%, now mild MS.�Mitral regurgitation appears worse.�Aortic valve stenosis remains moderate to severe.
Cardiology on board.
Chest US confirmed pleural effusion, IRAD CS for BL thoracentesis. Follow thora labs.
# Increased work of breathing with worsening hypoxia on 06/24/22
# Now Acute hypoxic respiratory failure
2 L NC -> BIPAP 15/5
ABG unrevealing
check repeat COVID and Flu
cont duonebs but replace albuterol with Levalbuterol
Add Mucinex and start vest therapy
change ceftriaxone to Zosyn to cover for potential aspiration pneumonia
# permanent AFIB with improved RVR
cont Cardizem drip
Xarelto was discontinued recently due to fall risk and GOC discission etc.
# Cystitis and likely UTI
Follow urine Cx
ceftriaxone to Zosyn
# Insulin-requiring diabetes.
Lantus was decreased to 8 units recently, decrease further to 5 units HS
cover with low dose sliding scale.
# Chronic kidney disease stage 3B
baseline creatinine of 1.3.
# Essential hypertension.
currently on Cardizem drip
# Anemia of chronic disease.
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
# CVA (2014)
# Depression
# Chronic dysphagia on pureed diet per family
cont Pureed as tolerated
SPL on board
Code status: DNR DNI, confirmed with son and DIL on the phone
DVT PPX - HSQ
updated son and DIL on the phone 06/24 several times
DW RN
updated DIL 06/25
Anticipated Discharge: > 48 hours
Subjective/Interval History
-
no event overnight, comfortable
Objective Data
-
Labs:
Laboratory Results
06/25/22 06/25/22
04:13 04:13
WBC 9.3
Hgb 12.7 L
Hct 38.1 L
Plt Count 298
Sodium 136
Potassium 4.1
Chloride 99
Carbon Dioxide 27
BUN 29 H
Creatinine 1.2
Glucose 125 H
Calcium 8.7
Vital Signs:
Vital Signs
Temp Pulse Resp BP Pulse Ox
36.7 C 87 18 116/75 100
06/25/22 08:01 06/25/22 07:57 06/25/22 07:57 06/25/22 06:00 06/25/22 07:57
I&O
06/24/22 06/25/22 06/26/22
06:59 06:59 06:59
Intake Total 120 / 120 600 / 600
Output Total 150 / 150
Balance 120 / 120 450 / 450
Review of Systems
-
Unable to obtain full review of systems at this time due to: Dementia and Other (confused)
Physical Exam
-
General: Well Developed, Well Nourished, Comfortable, Respiratory Distress and Appears Chronically Ill
HEENT: Normocephalic, Atraumatic, Moist Mucous Membranes and Oxygen (BIPAP 15/5)
Respiratory: Clear to Auscultation, Crackles, Non Labored Respirations and Other (hoarse breath sound); Negative Accessory Resp Muscle Use
Cardiac: S1/S2 and Irregular Rhythm; Negative Murmur, Rub or Gallop
GI: Soft, Nontender, Nondistended and Normal Bowel Sounds; Negative Organomegaly
Rectal: Deferred by Provider
Musculoskeletal: No Clubbing, No Cyanosis and No Edema
Skin: Warm and Dry; Negative Rash
Neuro: Awake, Alert and Nonfocal/Grossly Intact; Negative AO x 3
Psych: Calm and Apparent Dementia; Negative Intact Judgement/Insight
Data Reviewed
-
Diagnostic Radiology: Report Reviewed by me
Labs: Labs Reviewed by me
[2022-06-25 08:16] LABS: LDH 419 U/L (313-618); Total Protein 6.4 g/dl (6.3-8.2)
--- NOTE | 2022-06-25 09:06 | W.PN.CARD.2 ---
Today's Communication / Plan
-
-Continue Cardizem drip.
-Continue Lasix 40 mg IV BID.
Assmnt/Subjective-Int Hx
-
Assessment/Plan:
82-year-old man with HFmEF, aortic stenosis,�permanent AFib (first seen 08/2021; not on systemic anticoagulation secondary to fall risk), type 2 diabetes mellitus, chronic anemia, hyperlipidemia, CVA (2014), BPH, GERD, Lambert�Eaton syndrome,
dementia and chronic LLE DVT admitted with change in mental status; found to be in A. fib with RVR.
Permanent A. fib with RVR:
-Was on Cardizem CD2 140 mg daily at home, but poor mentation currently.
-Continue Cardizem drip.
-It has been recommended on his recent admission that systemic anticoagulation be discontinued secondary to fall risk.
Acute on chronic HFmEF (EF 40-45%):
-Continue Lasix 40 mg IV BID.
Moderate/severe .�
-Not a reasonable candidate for TAVR.
Multi-valvular heart disease:
-Mild to moderate aortic regurgitation/severe MR/severe TR; pulmonary HTN.
-Conservative management; continue Lasix.
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
CVA (2014)
DM
Hx of CKD
Subjective:
Patient with worsening change of status in terms of mentation and respiration; transferred to IMU overnight. Somnolent this AM. Heart rate control has actually improved on Cardizem drip, now ~80s-100s.
Interval History
Interval History
Date of Service: June 25, 2022
Chief Complaint
-
Chief Complaint: Arrhythmia F/U (A. fib) and Heart Failure F/U (EF 40-45%)
Review of Systems
Review of Systems
Review of Systems: Unable to Assess (Somnolent)
Physical Exam
Vital Signs
Vital Signs
Temp Pulse Resp BP Pulse Ox
98.1 F 87 18 116/75 100
06/25/22 08:01 06/25/22 07:57 06/25/22 07:57 06/25/22 06:00 06/25/22 07:57
06/24/22 06/25/22 06/26/22
06:59 06:59 06:59
Actual Weight 71.985 kg 72.3 kg
Body Mass Index (BMI): 25.7
Physical Exam
Constitutional: No acute distress and Other (Somnolent)
EENT: Anicteric
Cardiovascular: Pedal edema is absent, Rhythm/rate is irregular, Systolic murmur present (Soft 2/6) and S1S2 is normal
Respiratory: Respiratory effort normal and Lungs clear to auscul.
GI: Soft
Neuro/Psych: Other (Somnolent)
Other: Skin (Warm, dry)
Data Reviewed
-
Results:
I&O
06/23/22 06/24/22 06/25/22 06/26/22
06:59 06:59 06:59 06:59
Intake Total 120 / 120 600 / 600
Output Total 150 / 150
Balance 120 / 120 450 / 450
Telemetry Tracings: I personally reviewed (Gage blum)
Labs:
06/25/22 04:13
06/25/22 04:13
LAB Results
06/23/22
16:55
Troponin I < 0.012
Magnesium 2.0 mg/dl (1.6-2.3) 06/24/22 05:34
06/23/22 06/23/22
16:55 17:17
Llu-Z-Mmixgnlrvmg Pept 4330 Cancelled
[2022-06-25] MEDS: LASIX 40 MG IV ×2 (09:38→16:26)
[2022-06-25 10:08] LABS: Covid-19 RAPID by NAA Negative (Negative)
[2022-06-25] MEDS: HEPARIN 5000 UNITS SC ×3 (10:44→23:35)
[2022-06-25] MEDS: KCL PO (10:45)
[2022-06-25] MEDS: MIRALAX PO (10:45)
[2022-06-25] MEDS: ZOLOFT PO (10:45)
[2022-06-25] MEDS: MUCINEX PO ×2 (10:45→19:48)
[2022-06-25] MEDS: ZOSYN IV (10:57)
[2022-06-25] MEDS: ZOSYN 50 IV ×3 (11:00→22:47)
--- NOTE | 2022-06-25 11:51 | PTOTSP ---
Patient transferred to IMU - please place updated PT and OT orders when appropriate for activity with therapy. Thank you.
[2022-06-25 12:09] LABS: Glucose - Point of Care 130 mg/dl (65-99)
--- NOTE | 2022-06-25 12:17 | PTCARENOTE ---
Pt sent to IR for thoracentesis-1 Liter taken off right side, pt did desat to 85% on bipap afterward, CXR competed, no pneumo-RT increased 02 to 10L on bipap /, returned to room, Dr. Garrick jimenez upon return to unit.
[2022-06-25 12:36] LABS: Body Fluid pH 7.47
[2022-06-25 12:37] LABS: Body Fluid Mononuclear 62.5 %; Body Fluid Polymorphonuclear 37.5 %; Body Fluid WBC 323 /CUMM
[2022-06-25 12:49] LABS: Body Fluid Glucose 132 mg/dl; Body Fluid LDH 315 U/L; Body Fluid Protein 3.5 g/dl
[2022-06-25 12:55] LABS: Body Fluid Second Tech EM
--- NOTE | 2022-06-25 15:43 | CM ---
CM called DIANA Sheffield to introduce self and role of CM as pt has moved units. Nettie confirmed plan is to return home to [facility] and they may elect hospice services at that time if appropriate, or even sooner pending progression of hospital stay.
CM provided contact number to [facility] and support provided. Cm called [facility] and spoke to Lia to discuss care that they can provide in PCU setting. Lia reports no concerns with ability to provide care on dc and reports they use [facility] as their inhouse provider if needed on dc.
CM completed Medical Necessity form and Transport pickling solution maker form and place in chart.
Plan: Return to [facility] with either homecare from [facility] or Hospice services with [facility].
Call Report: [phone]
[2022-06-25 16:33] LABS: Glucose - Point of Care 127 mg/dl (65-99)
--- NOTE | 2022-06-25 16:45 | PTCARENOTE ---
Pt continues on bipap this afternoon -weaned back to 3L with 15/5, pt satting 97% at this time, sleeping when undisturbed. Looks comfortable. Q2T maintained, mitts and [address]
--- NOTE | 2022-06-25 16:50 | PTCARENOTE ---
Pt does have diet ordered (D1 which is his baseline) but due to tenuous respiratory status requiring bipap all day, no PO intake taken. Will pass on to assistant casino shift manager.
--- NOTE | 2022-06-25 18:16 | PTCARENOTE ---
Bipap removed by RT-will try pt on 4L at this time. Mouthcare provided.
--- NOTE | 2022-06-25 20:51 | PTCARENOTE ---
Resp status stable on 3 liters- lungs diminished- Cardizem gtt weaned to 10/hr
[2022-06-25] MEDS: FLUSH (NSS) 4 FLUSH IV (22:47)
[2022-06-25 23:35] LABS: Glucose - Point of Care 149 mg/dl (65-99)
[2022-06-25] MEDS: LANTUS 0.0500000000000000028 UNITS SC (23:36)
[2022-06-26] VITALS (34 sets, daily range): BP systolic 81–124; BP diastolic 38–80; PULSE 2–88; O2SAT 96; BMI 24.3
--- NOTE | 2022-06-26 00:47 | PTCARENOTE ---
remians confused and impulsive- afib - cardizem gtt weaned to 5mg/hr-
--- NOTE | 2022-06-26 03:13 | PTCARENOTE ---
100% on 3 liters no distress- cardizem gtt at 5/hr- pt sleeping soundly vitals wnl- afebrile
[2022-06-26] MEDS: ZOSYN 50 IV ×4 (03:18→21:29)
[2022-06-26 03:27] LABS: Hematocrit 37.9 % (39.0-52.0); Hemoglobin 12.6 g/dL (13.0-18.0); Mean Corp Hgb Conc. 33.2 g/dL (33.0-37.0); Mean Corpuscular Hgb 33.7 pg (27.0-31.0); Mean Corpuscular Volume 101.3 fL (80.0-94.0); Mean Platelet Volume 9.6 fL (7.4-10.4); Platelet Count 278 10^3/uL (130-400); Red Blood Cell Count 3.74 10^6/uL (4.70-6.10); White Blood Cell Count 9.3 10^3/uL (4.8-10.8)
[2022-06-26 03:49] LABS: Blood Urea Nitrogen 29 mg/dl (9-20); Calcium 8.5 mg/dl (8.4-10.2); Carbon Dioxide 28 mmol/L (22-30); Chloride 103 mmol/L (98-107); Estimated Creatinine Clearance 31 ml/min; Glomerular Filtration Rate 41.4; Glucose 131 mg/dl (65-99); Potassium 3.9 mmol/L (3.5-5.1); Sodium 139 mmol/L (135-145)
[2022-06-26 07:34] LABS: Glucose - Point of Care 120 mg/dl (65-99)
[2022-06-26] MEDS: NOVOLOG FLEXPEN-LOW RESISTANCE SC (07:46)
--- NOTE | 2022-06-26 07:53 | W.PN.HOSP.TC ---
Today's Communication/Plan
-
Pt's breathing has improved following R thoracentesis 06/25 (removed 1000 cc of straw colored pleural fluid).
for L thoracentesis 06/26
IV Lasix 40 BID on hold with DAVID
Cont O2 support, now down to 3L NC
Cont Zosyn and follow urine Cx
cont Cardizem drip, titration per cardiology
Cont low dose Lantus at 5 units HS
Assessment / Plan
Assessment / Plan
82-year-old male with past medical history significant for atrial fibrillation on anticoagulation with Xarelto, CHF, diabetes and recurrent urinary tract infections who presents to the emergency department with lethargy, hypotension and
rapid atrial fibrillation.
Patient unable to provide significant history in part due to his dementia and debilitated status and is lethargy. Daughter was at the bedside provided some history. According to patient was sent in from senior living for approximately worsening
lethargy. He was unable to eat due to feeling sleepy all the time. No fevers noted at the senior living. He did not complain of any back pain, flank pain, abdominal pain, dysuria or hematuria. He had no nausea or vomiting. No documented fevers.
Been compliant with his medications. Apparently blood pressure was checked and patient was found to be hypotensive. When EMS arrived his pulse was actually rate controlled. Patient did feel short of breath and felt as though he could not catch her
breath.
In the emergency department, he was afebrile, blood pressure was in the low 100s, oxygen saturation was 96% on room air and his pulse rate was in the 120s. ECG shows A. fib with rapid ventricular rate at 129 and known T wave inversions in V4 through
6. CBC was unremarkable. Chemistries mostly unremarkable. Troponin was negative. COVID was negative. UA was positive.
Patient was started on diltiazem drip.
A/P:
# Acute on chronic systolic and diastolic HF
# moderate bilateral pleural effusions with associated compressive atelectasis at both lung bases
# Acute hypoxic respiratory failure
# Moderate to severe , not a candidate for TAVR.
Pt was placed on 2 L NC -> BIPAP 15/5 due to work of breathing -> weaned down to 3L NC following thora
s/p R thoracentesis 06/25, removed 1000 cc of straw colored pleural fluid.
for L thoracentesis 06/26
IV Lasix 40 BID on hold with DAVID ([employer] 40mg PO BID), monitor daily weight.
Cont telemetry monitoring.
echo: EF�43%, Diastolic�function indeterminate.�Compared to 09/10/2021, ventricular function now mildly impaired, EF from 50-55% to 43%, now mild MS.�MR appears worse.�Aortic valve stenosis remains moderate to severe.
Cardiology on board.
# Increased work of breathing with worsening hypoxia on 06/24/22
# Acute hypoxic respiratory failure
2 L NC -> BIPAP 15/5 -> weaned down to 3L NC following thora
ABG unrevealing
repeat COVID and Flu neg
cont duonebs but replace albuterol with Levalbuterol
Added Mucinex and started vest therapy
change ceftriaxone to Zosyn to cover for potential aspiration pneumonia
# permanent AFIB with improved RVR
cont Cardizem drip, titration per cardiology
Xarelto was discontinued recently due to fall risk and GOC discission etc.
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
baseline creatinine of 1.3.
Today SCr 1.6, holding Lasix
# Cystitis and likely UTI
Follow urine Cx
ceftriaxone to Zosyn
# Insulin-requiring diabetes.
Lantus was decreased to 8 units recently, decrease further to 5 units HS
cover with low dose sliding scale.
# Essential hypertension.
currently on Cardizem drip
# Anemia of chronic disease.
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
# CVA (2014)
# Depression
# Chronic dysphagia on pureed diet per family
cont Pureed as tolerated
SPL on board
Code status: DNR DNI, confirmed with son and DIL on the phone
DVT PPX - HSQ
DW RN
updated son and DIL Nettie 06/26
Anticipated Discharge: > 48 hours
Subjective/Interval History
-
no event overnight, comfortable
Objective Data
-
Labs:
Laboratory Results
06/26/22 06/26/22
03:06 03:06
WBC 9.3
Hgb 12.6 L
Hct 37.9 L
Plt Count 278
Sodium 139
Potassium 3.9
Chloride 103
Carbon Dioxide 28
BUN 29 H
Creatinine 1.6 H
Glucose 131 H
Calcium 8.5
Vital Signs:
Vital Signs
Temp Pulse Resp BP Pulse Ox
36.7 C 79 17 115/63 96
06/26/22 07:00 06/26/22 06:00 06/26/22 06:00 06/26/22 06:00 06/26/22 06:00
I&O
06/25/22 06/26/22 06/27/22
06:59 06:59 06:59
Intake Total 600 / 600 100 / 100
Output Total 150 / 150 1350 / 1350
Balance 450 / 450 -1250 / -1250
Review of Systems
-
Unable to obtain full review of systems at this time due to: Dementia and Other (confused)
Physical Exam
-
General: Well Developed, Well Nourished, Comfortable, Respiratory Distress and Appears Chronically Ill
HEENT: Normocephalic, Atraumatic, Moist Mucous Membranes and Oxygen (down to 3 L NC)
Respiratory: Clear to Auscultation, Crackles and Non Labored Respirations; Negative Accessory Resp Muscle Use
Cardiac: S1/S2 and Irregular Rhythm; Negative Murmur, Rub or Gallop
GI: Soft, Nontender, Nondistended and Normal Bowel Sounds; Negative Organomegaly
Rectal: Deferred by Provider
Musculoskeletal: No Clubbing, No Cyanosis and No Edema
Skin: Warm and Dry; Negative Rash
Neuro: Nonfocal/Grossly Intact; Negative AO x 3
Psych: Calm and Apparent Dementia; Negative Intact Judgement/Insight
Data Reviewed
-
Diagnostic Radiology: Report Reviewed by me
Labs: Labs Reviewed by me
[2022-06-26] MEDS: KCL 20 MEQ PO (08:17)
[2022-06-26] MEDS: MUCINEX 1200 MG PO ×2 (08:17→19:44)
[2022-06-26] MEDS: HEPARIN 5000 UNITS SC ×3 (08:17→23:32)
[2022-06-26] MEDS: ZOLOFT 50 MG PO (08:17)
[2022-06-26] MEDS: MIRALAX 17 GRAMS PO (08:19)
[2022-06-26] MEDS: LASIX IV (08:19)
--- NOTE | 2022-06-26 08:20 | W.PN.CARD.2 ---
Today's Communication / Plan
-
Move to PO rate control
Tyra with thoracentesis, right thoro yesterday seems to have provided improvement in clinical status
Resume furosemide soon
Given that he is not a candidate for intervention on his heart disease HOSPICE is appropriate to consider
Assmnt/Subjective-Int Hx
-
Assessment/Plan:
82-year-old man with HFmEF, aortic stenosis,�permanent AFib (first seen 08/2021; not on systemic anticoagulation secondary to fall risk), type 2 diabetes mellitus, chronic anemia, hyperlipidemia, CVA (2014), BPH, GERD, Lambert�Eaton syndrome,
dementia and chronic LLE DVT admitted with change in mental status; found to be in A. fib with RVR.
Permanent A. fib
- improved, on IV dilt at 5 => move to Toprol
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
- Prognosis poor with the development of renal insuf with diuresis
- Pt's nurse notes family is realistic and strong consideration for hospice
- Right thoracentesis 06/25/2022 (1000 ml) and plans for left thoracentesis today 06/26/2022
Multi-valvular heart disease:
- Significant and MR, only medical therapy appropriate
Acute renal insuf
- High risk, likely cardiorenal
- Poor prognosis
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
CVA (2014)
DM
Hx of CKD
Dementia
Subjective:
He is comfortable and pleasant, rates good
Interval History
Interval History
Date of Service: June 26, 2022
Chief Complaint
-
Chief Complaint: Heart Failure F/U, Valvular HD F/U and Cardiomyopathy
Review of Systems
Review of Systems
Review of Systems: Negative for Chest Pain and Other (unreliable, pleasantly confused)
Physical Exam
Vital Signs
Vital Signs
Temp Pulse Resp BP Pulse Ox
98.1 F 79 17 115/63 96
06/26/22 07:00 06/26/22 06:00 06/26/22 06:00 06/26/22 06:00 06/26/22 06:00
06/25/22 06/26/22 06/27/22
06:59 06:59 06:59
Actual Weight 72.3 kg 68.3 kg
Body Mass Index (BMI): 24.3
Physical Exam
Constitutional: No acute distress
Cardiovascular: Rhythm/rate is irregular, Systolic murmur present and S1S2 is normal
Respiratory: Respiratory effort normal and Lungs clear to auscul. (decreased left base)
GI: Soft and Distention absent
Neuro/Psych: Alert
Data Reviewed
-
Results:
I&O
06/24/22 06/25/22 06/26/22 06/27/22
06:59 06:59 06:59 06:59
Intake Total 120 / 120 600 / 600 100 / 100
Output Total 150 / 150 1350 / 1350
Balance 120 / 120 450 / 450 -1250 / -1250
EKG Tracings: Tracing reviewed (rate controlled afib)
Telemetry Tracings: I personally reviewed (good rate control of afib)
Chest X ray: Image reviewed (after thoro yesterday: right lung looks good)
Echocardiogram: Report reviewed (mild LV dysfxn, signif MR//TR, mild MS (calcific by description))
Medical Test Reports: I reviewed (I discussed case with pt's nurse, she noted improvement in status today with thoro yesterday and the family thoughts to consider hospice)
Labs:
06/26/22 03:06
06/26/22 03:06
LAB Results
06/23/22
16:55
Troponin I < 0.012
Magnesium 2.0 mg/dl (1.6-2.3) 06/24/22 05:34
06/23/22 06/23/22
16:55 17:17
Zln-Y-Esppvkyksot Pept 4330 Cancelled
[2022-06-26] MEDS: ATROVENT NEBULES 0.5 MG INH ×4 (08:23→20:47)
[2022-06-26] MEDS: XOPENEX 1.25 MG INHALANT SOLUTION INH ×4 (08:23→20:47)
--- NOTE | 2022-06-26 08:27 | PTCARENOTE ---
Pt rec'd from shift superintendent caustic cresylate, pleasantly confused, plan discussed with care team. Pt for thoracentesis on left side today, remains stable on 3L, occ harsh non pro cough noted- will hold Lasix today per Dr. Mccauley, transition to oral antiarrythmic per
cards. Pt ate breakfast, took pills whole in applesauce, resting comfortably now.
[2022-06-26] MEDS: TOPROL XL 50 MG PO ×2 (09:31→19:44)
--- NOTE | 2022-06-26 10:01 | PTCARENOTE ---
Pt sent to IR for thoracentesis left side at this time.
--- NOTE | 2022-06-26 11:19 | PTCARENOTE ---
pt rec'd back from IR into his room, assisted to bed, now resting quietly. No complaints.
[2022-06-26 11:38] LABS: Glucose - Point of Care 219 mg/dl (65-99)
[2022-06-26 12:05] LABS: Body Fluid LDH 333 U/L; Body Fluid Protein 3.9 g/dl
[2022-06-26] MEDS: NOVOLOG FLEXPEN-LOW RESISTANCE 2 UNITS SC ×2 (12:38→17:03)
[2022-06-26 16:58] LABS: Glucose - Point of Care 208 mg/dl (65-99)
--- NOTE | 2022-06-26 20:00 | PTCARENOTE ---
Resumed care of pt laying in bed AAOx1. Pt forgetful to time and place. Pleasantly confused. HR in the low 100's Afib on the monitor. HR irreg. POX 98% on RA. Lungs dec with scattered Rhonchi, moist occasional cough. Band aide in place from left
thoracentesis intact. LAU. + bowel, round abd, no BM at this time. Pt inc of urine #[address] draining yellow urine. Palpable peripheral pulses present. Some scattered ecchymosis noted to arms and legs. Right hand int capped. Left forearm int
capped. Bed alarm in place for pt safety. No issues to report at this time. Pt repositioned. Will continue to monitor.
[2022-06-26] MEDS: LANTUS 0.0500000000000000028 UNITS SC (21:33)
[2022-06-26 21:41] LABS: Glucose - Point of Care 219 mg/dl (65-99)
--- NOTE | 2022-06-26 22:10 | PTCARENOTE ---
Pt now with increased confusion. Pt pulling off monitor and pox. Pt was placed on Bipap by RT and pt pulled off. Reality orientation provided. Close monitoring maintained.
--- NOTE | 2022-06-26 23:56 | PTCARENOTE ---
Pt placed on bipap by RT. Pt constantly taking off mask. Frequent reality orientation provided. Will continue to monitor.
[2022-06-27] VITALS (17 sets, daily range): BP systolic 80–105; BP diastolic 52–76; PULSE 2–135; O2SAT 97; BMI 24.2
[2022-06-27] MEDS: ZOSYN 50 IV ×4 (04:35→21:33)
[2022-06-27 05:12] LABS: Hematocrit 37.2 % (39.0-52.0); Hemoglobin 12.6 g/dL (13.0-18.0); Mean Corp Hgb Conc. 33.9 g/dL (33.0-37.0); Mean Corpuscular Hgb 33.7 pg (27.0-31.0); Mean Corpuscular Volume 99.5 fL (80.0-94.0); Mean Platelet Volume 9.8 fL (7.4-10.4); Platelet Count 292 10^3/uL (130-400); Red Blood Cell Count 3.74 10^6/uL (4.70-6.10); Red Cell Dist. Width 13.8 % (11.5-14.5); White Blood Cell Count 11.2 10^3/uL (4.8-10.8)
[2022-06-27 05:47] LABS: Blood Urea Nitrogen 30 mg/dl (9-20); Calcium 8.5 mg/dl (8.4-10.2); Carbon Dioxide 28 mmol/L (22-30); Chloride 103 mmol/L (98-107); Estimated Creatinine Clearance 33 ml/min; Glomerular Filtration Rate 44.6; Glucose 120 mg/dl (65-99); Potassium 3.4 mmol/L (3.5-5.1); Sodium 139 mmol/L (135-145)
[2022-06-27] MEDS: ATROVENT NEBULES 0.5 MG INH ×4 (07:30→21:15)
[2022-06-27] MEDS: XOPENEX 1.25 MG INHALANT SOLUTION INH ×4 (07:30→21:15)
[2022-06-27 07:57] LABS: Glucose - Point of Care 117 mg/dl (65-99)
--- NOTE | 2022-06-27 08:15 | W.PN.HOSP.TC ---
Today's Communication/Plan
-
dispo planning
cont to hold lasix
Pt has been weaned off to RA and is as comfortable as can be
Assessment / Plan
Assessment / Plan
82-year-old male with past medical history significant for atrial fibrillation on anticoagulation with Xarelto, CHF, diabetes and recurrent urinary tract infections who presents to the emergency department with lethargy, hypotension and
rapid atrial fibrillation.
Patient unable to provide significant history in part due to his dementia and debilitated status and is lethargy. Daughter was at the bedside provided some history. According to patient was sent in from [facility] for approximately worsening
lethargy. He was unable to eat due to feeling sleepy all the time. No fevers noted at the half-way. He did not complain of any back pain, flank pain, abdominal pain, dysuria or hematuria. He had no nausea or vomiting. No documented fevers.
Been compliant with his medications. Apparently blood pressure was checked and patient was found to be hypotensive. When EMS arrived his pulse was actually rate controlled. Patient did feel short of breath and felt as though he could not catch her
breath.
In the emergency department, he was afebrile, blood pressure was in the low 100s, oxygen saturation was 96% on room air and his pulse rate was in the 120s. ECG shows A. fib with rapid ventricular rate at 129 and known T wave inversions in V4 through
6. CBC was unremarkable. Chemistries mostly unremarkable. Troponin was negative. COVID was negative. UA was positive.
Patient was started on diltiazem drip.
A/P:
# Acute on chronic systolic and diastolic HF
# moderate bilateral pleural effusions with associated compressive atelectasis at both lung bases
# Acute hypoxic respiratory failure, resolved
# Moderate to severe , not a candidate for TAVR.
Weaned from BIPAP to RA
s/p R thoracentesis 06/25, removed 1000 cc of straw colored pleural fluid.
s/p L thoracentesis 06/26, removed 1250 cc of straw colored pleural fluid.
IV Lasix 40 BID on hold with DAVID ([employer] 40mg PO BID), monitor daily weight.
Cont telemetry monitoring.
echo: EF�43%, Diastolic�function indeterminate.�Compared to 09/10/2021, ventricular function now mildly impaired, EF from 50-55% to 43%, now mild MS.�MR appears worse.�Aortic valve stenosis remains moderate to severe.
Cardiology on board.
# Increased work of breathing with worsening hypoxia on 06/24/22, resolved
# Acute hypoxic respiratory failure, now resolved
Weaned from BIPAP to RA
ABG unrevealing
repeat COVID and Flu negative
cont duonebs but replace albuterol with Levalbuterol
Added Mucinex and started vest therapy
change ceftriaxone to Zosyn to cover for potential aspiration pneumonia
# permanent AFIB with improved RVR
Off Cardizem drip -> PO Metoprolol
Xarelto was discontinued recently due to fall risk and GOC discission etc.
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
baseline creatinine of 1.3.
Today SCr 1.5, cont to hold Lasix
# Cystitis and likely UTI
urine Cx with Klebsiella
ceftriaxone to Zosyn
# Insulin-requiring diabetes.
Lantus decreased to 5 units HS.
cover with low dose sliding scale.
# Essential hypertension.
Now hypotension
# Anemia of chronic disease.
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
# CVA (2014)
# Depression
# Chronic dysphagia on pureed diet per family
cont Pureed as tolerated
SPL on board
Code status: DNR DNI, confirmed with son and DIL on the phone
DVT PPX - HSQ
KEITH RN
extensive discussion with DIANA Sheffield today 06/27. She confirmed that the family's ultimate plan is to have the patient sign onto hospice, however, she feels that some family members (rosalie the pt's ) may not be quite ready yet. I have asked Nettie to
counselling psychologist the family, especially regarding DNH. It would NOT be an ideal situation to discharge the patient and have the patient sent back to the hospital due to clinical decompensation (which is likely to happen) before family is prepared for DNH.
Of note, this is what happened last week, pt was discharged for 2 days and sent straight back to the hospital due to respiratory distress.
Anticipated Discharge: > 48 hours
Subjective/Interval History
-
no event overnight, comfortable
Objective Data
-
Labs:
Laboratory Results
06/27/22 06/27/22
04:24 04:24
WBC 11.2 H
Hgb 12.6 L
Hct 37.2 L
Plt Count 292
Sodium 139
Potassium 3.4 L
Chloride 103
Carbon Dioxide 28
BUN 30 H
Creatinine 1.5 H
Glucose 120 H
Calcium 8.5
Vital Signs:
Vital Signs
Temp Pulse Resp BP Pulse Ox
36.7 C 100 16 82/57 98
06/27/22 07:30 06/27/22 07:31 06/27/22 07:31 06/27/22 06:00 06/27/22 07:31
I&O
06/26/22 06/27/22 06/28/22
06:59 06:59 06:59
Intake Total 100 / 100 510 / 510
Output Total 1350 / 1350 750 / 750
Balance -1250 / -1250 -240 / -240
Review of Systems
-
Unable to obtain full review of systems at this time due to: Dementia and Other (confused)
Physical Exam
-
General: Well Developed, Well Nourished, No Apparent Distress, Comfortable and Appears Chronically Ill
HEENT: Normocephalic, Atraumatic and Moist Mucous Membranes; Negative Oxygen
Respiratory: Clear to Auscultation and Non Labored Respirations; Negative Accessory Resp Muscle Use
Cardiac: S1/S2 and Irregular Rhythm; Negative Murmur, Rub or Gallop
GI: Soft, Nontender, Nondistended and Normal Bowel Sounds; Negative Organomegaly
Rectal: Deferred by Provider
Musculoskeletal: No Clubbing, No Cyanosis and No Edema
Skin: Warm and Dry; Negative Rash
Neuro: Nonfocal/Grossly Intact; Negative AO x 3
Psych: Calm and Apparent Dementia; Negative Intact Judgement/Insight
Data Reviewed
-
Diagnostic Radiology: Report Reviewed by me
Labs: Labs Reviewed by me
[2022-06-27] MEDS: MUCINEX 1200 MG PO ×2 (09:30→19:09)
[2022-06-27] MEDS: HEPARIN 5000 UNITS SC ×3 (09:30→23:08)
[2022-06-27] MEDS: NOVOLOG FLEXPEN-LOW RESISTANCE SC (09:30)
[2022-06-27] MEDS: KCL 40 MEQ PO (09:30)
[2022-06-27] MEDS: MIRALAX 17 GRAMS PO (09:30)
[2022-06-27] MEDS: KCL 20 MEQ PO (09:30)
[2022-06-27] MEDS: TOPROL XL PO (09:50)
[2022-06-27] MEDS: ZOLOFT 50 MG PO (09:54)
--- NOTE | 2022-06-27 10:07 | CM ---
Patient seen at bedside, patient reminded to take a breathe and stated 'that is enough no more deep breaths'. Plan for patient is to return to [facility] with either accent [facility]N or home hospice with Echo per chart review. Physician had conversation
with family regarding options for discharge, await response/decisions. CM will continue to follow for discharge planning needs.
Plan; return to [facility] with [facility] vs echo hospice at facility
--- NOTE | 2022-06-27 11:09 | W.PN.CARD.2 ---
Addendum entered and electronically signed by Sammy Orozco MD 06/27/22 12:15:
Patient seen and examined in collaboration with SPECIMEN ACCESSION[employer]; agree with below.
-Patient still with notable dementia.
-Will lower Toprol-XL to 50 mg once daily, given blood pressure limitations.
-Lasix being held for now; consider discharging home on Lasix 20 mg daily.
-No further cardiac recommendations at this time; family considering hospice.
-Cardiology will remain available on an as-needed basis.
Original Note:
Today's Communication / Plan
-
-decrease metoprolol to 50 mg once daily and give as BP will allow
Assmnt/Subjective-Int Hx
-
Assessment/Plan: 82-year-old man with HFmEF, aortic stenosis,�permanent AFib (first seen 08/2021; not on systemic anticoagulation secondary to fall risk), type 2 diabetes mellitus, chronic anemia, hyperlipidemia, CVA (2014), BPH, GERD, Lambert�Eaton
syndrome, dementia and chronic LLE DVT admitted with change in mental status; found to be in A. fib with RVR.
Permanent A. fib:
-rates 90's-120's currently, no symptoms
-PO BB added 06/26/22, but held this AM for hypotension
-continue BB as tolerated, will lower dose to 50 mg once daily- HR may be suboptimal with this, but he is not symptomatic
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
- Prognosis poor with the development of renal insuf with diuresis
- Right thoracentesis 06/25/2022 (1000 ml) and left thoracentesis (1250 ml) 06/26/2022
-hospice is being discussed and considered
Multi-valvular heart disease:
- Significant and MR, only medical therapy appropriate
Acute renal insuf
- High risk, likely cardiorenal
- Poor prognosis
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
CVA (2014)
DM
Hx of CKD
Dementia
Subjective:
Feels 'great'. Breathing better. No CP or palps. Pleasant.
Interval History
Interval History
Date of Service: June 27, 2022
Chief Complaint
-
Chief Complaint: Arrhythmia F/U and Heart Failure F/U
Review of Systems
Review of Systems
Review of Systems: Negative for Chest Pain, Negative for Dyspnea, Negative for Palpitations and Neg Nausea +/or Vomiting
Physical Exam
Vital Signs
Vital Signs
Temp Pulse Resp BP Pulse Ox
98.1 F 100 16 90/55 95
06/27/22 07:30 06/27/22 09:50 06/27/22 07:31 06/27/22 09:50 06/27/22 08:50
06/26/22 06/27/22 06/28/22
06:59 06:59 06:59
Actual Weight 68.3 kg 68.1 kg
Body Mass Index (BMI): 24.2
Physical Exam
Constitutional: No acute distress
EENT: Anicteric
Cardiovascular: Rhythm/rate is irregular
Respiratory: Respiratory effort normal and Lungs clear to auscul.
GI: Soft, Non tender and Normal bowel sounds
Neuro/Psych: Alert
Other: Skin (warm and dry)
Data Reviewed
-
Results:
I&O
06/25/22 06/26/22 06/27/22 06/28/22
06:59 06:59 06:59 06:59
Intake Total 600 / 600 100 / 100 510 / 510
Output Total 150 / 150 1350 / 1350 750 / 750
Balance 450 / 450 -1250 / -1250 -240 / -240
Telemetry Tracings: I personally reviewed (AFIB 90's-120's)
Labs:
06/27/22 04:24
06/27/22 04:24
Magnesium 2.0 mg/dl (1.6-2.3) 06/27/22 04:24
06/23/22 06/23/22
16:55 17:17
Fta-L-Tevfnfgeziq Pept 4330 Cancelled
[2022-06-27 11:36] LABS: Glucose - Point of Care 177 mg/dl (65-99)
[2022-06-27] MEDS: NOVOLOG FLEXPEN-LOW RESISTANCE 1 UNITS SC (12:55)
--- NOTE | 2022-06-27 13:27 | PTCARENOTE ---
Addendum entered by Clau Kramer 06/27/22 14:53:
Pt's HR in the 110-130's at rest. 15:00 Toprol held d/t parameters. Pt hypotensive. Dr. Mccauley notified, no further orders at this time.
Original Note:
Pt resting comfortably. Sleeping intermittently. Presents as assessed. Meds administered as ordered, see MAR. Afib on tele monitor. BP MD andrés aware- no further orders received. Bed alarm in place for safety. Call gonsalez within reach.
[2022-06-27] MEDS: NOVOLOG FLEXPEN-LOW RESISTANCE 2 UNITS SC (17:00)
[2022-06-27 17:10] LABS: Glucose - Point of Care 220 mg/dl (65-99)
[2022-06-27] MEDS: CARDIZEM 10 MG IV (19:09)
--- NOTE | 2022-06-27 20:32 | PTCARENOTE ---
Resumed care of pt laying in bed AAOx1 with son at bedside. Pt drowsy, but pleasantly confused. Pt able to follow commands and make needs known. HR in the 130's-140's in Afib on the monitor. PO Cardizem administered as ordered. POX 95% on 2 LO2 NC.
Lungs dec course t/o. + bowel, round abd. Palpable peripheral pulses present. Right hand int capped. Left forarm int capped. Pt inc of urine. Olga care provided. brown pvd legs. B/L foot drop. Pt denies any complaints at this time. Bed alarm on bed
for pt safety. Will continue to monitor.
[2022-06-27] MEDS: LANTUS 0.0500000000000000028 UNITS SC (21:33)
[2022-06-27 21:44] LABS: Glucose - Point of Care 195 mg/dl (65-99)
[2022-06-28] VITALS (7 sets, daily range): BP systolic 85–133; BP diastolic 46–117; BMI 24.4
[2022-06-28] MEDS: ZOSYN 50 IV (05:11)
[2022-06-28 05:36] LABS: Hematocrit 39.1 % (39.0-52.0); Mean Corp Hgb Conc. 33.2 g/dL (33.0-37.0); Mean Corpuscular Hgb 33.7 pg (27.0-31.0); Mean Corpuscular Volume 101.3 fL (80.0-94.0); Platelet Count 305 10^3/uL (130-400); Red Blood Cell Count 3.86 10^6/uL (4.70-6.10); Red Cell Dist. Width 13.9 % (11.5-14.5); White Blood Cell Count 11.8 10^3/uL (4.8-10.8)
--- NOTE | 2022-06-28 06:13 | PTCARENOTE ---
PT awake intermittently t/o the night. HR ranging from 115-120's. Pt given complete bed bath early this am, HR went from 160's-180's after bed bath. Upon completion and pt resting for a few min HR returned to 120's-130's. Pt very tachypneic/ LAU.
POX 95-97% on 2 LO2 NC overnight. Pt now resting comfortably. Will continue to monitor.
[2022-06-28 06:15] LABS: Blood Urea Nitrogen 36 mg/dl (9-20); Calcium 8.8 mg/dl (8.4-10.2); Carbon Dioxide 26 mmol/L (22-30); Chloride 106 mmol/L (98-107); Estimated Creatinine Clearance 31 ml/min; Glomerular Filtration Rate 41.4; Glucose 164 mg/dl (65-99); Potassium 4.6 mmol/L (3.5-5.1); Sodium 141 mmol/L (135-145)
[2022-06-28] MEDS: XOPENEX 1.25 MG INHALANT SOLUTION INH ×3 (07:45→15:35)
[2022-06-28] MEDS: ATROVENT NEBULES 0.5 MG INH (07:45)
[2022-06-28 08:10] LABS: Glucose - Point of Care 149 mg/dl (65-99)
--- NOTE | 2022-06-28 08:12 | W.PN.HOSP.TC ---
Addendum entered and electronically signed by Alexai Mccauley MD 06/28/22 16:36:
Total discharge time to inpatient hospice 45 minutes
Addendum entered and electronically signed by Alexia Mccauley MD 06/28/22 10:47:
Met with and discussed care with several family members at bedside.
They agree with hospice plan but may need some time to digest the reality.
[employer] set up technician Bonnie in room during discussion. Bonnie will touch base with me when family has finalized with inpt hospice plan.
Original Note:
Today's Communication/Plan
-
D/W DIANA Sheffield. Informed her about pt's critical illness, and that he is in imminent danger of going into cardiogenic shock with current hypotension and tachycardia.
Nettie is agreeable with the plan to transition the pt to inpt hospice, but will discuss with the rest of the family first.
She will get all family members to come to the hospital so that I can update all of them at the same time.
Assessment / Plan
Assessment / Plan
82-year-old male with past medical history significant for atrial fibrillation on anticoagulation with Xarelto, CHF, diabetes and recurrent urinary tract infections who presents to the emergency department with lethargy, hypotension and
rapid atrial fibrillation.
Patient unable to provide significant history in part due to his dementia and debilitated status and is lethargy. Daughter was at the bedside provided some history. According to patient was sent in [facility] for approximately worsening
lethargy. He was unable to eat due to feeling sleepy all the time. No fevers noted at the [facility]. He did not complain of any back pain, flank pain, abdominal pain, dysuria or hematuria. He had no nausea or vomiting. No documented fevers.
Been compliant with his medications. Apparently blood pressure was checked and patient was found to be hypotensive. When EMS arrived his pulse was actually rate controlled. Patient did feel short of breath and felt as though he could not catch her
breath.
In the emergency department, he was afebrile, blood pressure was in the low 100s, oxygen saturation was 96% on room air and his pulse rate was in the 120s. ECG shows A. fib with rapid ventricular rate at 129 and known T wave inversions in V4 through
6. CBC was unremarkable. Chemistries mostly unremarkable. Troponin was negative. COVID was negative. UA was positive.
Patient was started on diltiazem drip.
A/P:
# Acute on chronic systolic and diastolic HF
# moderate bilateral pleural effusions with associated compressive atelectasis at both lung bases
# Acute hypoxic respiratory failure
# Moderate to severe , not a candidate for TAVR.
Weaned from BIPAP to 2L NC
s/p R thoracentesis 06/25, removed 1000 cc of straw colored pleural fluid.
s/p L thoracentesis 06/26, removed 1250 cc of straw colored pleural fluid.
IV Lasix 40 BID on hold with DAVID (SURVEY COMPILER 40mg PO BID), monitor daily weight.
Cont telemetry monitoring.
echo: EF�43%, Diastolic�function indeterminate.�Compared to 09/10/2021, ventricular function now mildly impaired, EF from 50-55% to 43%, now mild MS.�MR appears worse.�Aortic valve stenosis remains moderate to severe.
Cardiology on board.
# Increased work of breathing with worsening hypoxia on 06/24/22, resolved
# Acute hypoxic respiratory failure
Weaned from BIPAP to 2L NC
ABG unrevealing
repeat COVID and Flu negative
cont duonebs but replace albuterol with Levalbuterol
Added Mucinex and started vest therapy
change ceftriaxone to Zosyn to cover for potential aspiration pneumonia
# permanent AFIB
Off Cardizem drip -> PO Metoprolol
Due to hypotension, unable up titrate Metoprolol
Pt is in imminent danger of going into cardiogenic shock with current hypotension and tachycardia.
D/w DIL Nettie (appointed person) about critical illness, she is agreeable with transition to in hospice, but will discuss with rest of the family.
Of note, Xarelto was discontinued recently due to fall risk and GOC discission etc.
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
baseline creatinine of 1.3.
SCr remain eleavted at 1.6, cont to hold Lasix
# Cystitis and likely UTI
urine Cx with Klebsiella
ceftriaxone to Zosyn
# Insulin-requiring diabetes.
Lantus decreased to 5 units HS.
cover with low dose sliding scale.
# Essential hypertension.
Now hypotension
# Anemia of chronic disease.
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
# CVA (2014)
# Depression
# Chronic dysphagia on pureed diet per family
cont Pureed as tolerated
SPL on board
Code status: DNR DNI, confirmed with son and DIL on the phone
DVT PPX - HSQ
DW RN
D/W DIL Nettie. Informed her about pt's critical illness, and that he is in imminent danger of going into cardiogenic shock with current hypotension and tachycardia.
Nettie is agreeable with the plan to transition the pt to inpt hospice, but will discuss with the rest of the family first.
She will get all family members to come to the hospital so that I can update all of them at the same time.
Anticipated Discharge: 24 - 48 hours
Subjective/Interval History
-
no event overnight, comfortable
Objective Data
-
Labs:
Laboratory Results
06/28/22 06/28/22
04:49 04:49
WBC 11.8 H
Hgb 13.0
Hct 39.1
Plt Count 305
Sodium 141
Potassium 4.6 D
Chloride 106
Carbon Dioxide 26
BUN 36 H
Creatinine 1.6 H
Glucose 164 H
Calcium 8.8
Vital Signs:
Vital Signs
Temp Pulse Resp BP Pulse Ox
37.3 C 127 18 88/59 96
06/28/22 03:02 06/28/22 07:49 06/28/22 07:49 06/28/22 04:00 06/28/22 07:49
I&O
06/27/22 06/28/22 06/29/22
06:59 06:59 06:59
Intake Total 510 / 510 50 / 50
Output Total 750 / 750
Balance -240 / -240 50 / 50
Review of Systems
-
Unable to obtain full review of systems at this time due to: Dementia and Other (confused)
Physical Exam
-
General: Well Developed, Well Nourished, Comfortable and Appears Chronically Ill
HEENT: Normocephalic, Atraumatic, Moist Mucous Membranes and Oxygen (2L NC)
Respiratory: Clear to Auscultation and Non Labored Respirations; Negative Accessory Resp Muscle Use
Cardiac: S1/S2, Irregular Rhythm and Tachycardic; Negative Murmur, Rub or Gallop
GI: Soft, Nontender, Nondistended and Normal Bowel Sounds; Negative Organomegaly
Rectal: Deferred by Provider
Musculoskeletal: No Clubbing, No Cyanosis and No Edema
Skin: Warm and Dry; Negative Rash
Neuro: Other (lethargic); Negative AO x 3
Psych: Calm and Apparent Dementia; Negative Intact Judgement/Insight
Data Reviewed
-
Labs: Labs Reviewed by me
[2022-06-28] MEDS: NOVOLOG FLEXPEN-LOW RESISTANCE SC ×2 (08:34→11:34)
[2022-06-28] MEDS: HEPARIN 5000 UNITS SC (08:35)
[2022-06-28] MEDS: ZOLOFT 50 MG PO (08:35)
[2022-06-28] MEDS: KCL 20 MEQ PO (08:35)
[2022-06-28] MEDS: MUCINEX 1200 MG PO (08:35)
[2022-06-28] MEDS: MIRALAX 17 GRAMS PO (08:36)
[2022-06-28] MEDS: ATROVENT NEBULES INH ×2 (11:11→15:35)
[2022-06-28] MEDS: ZOSYN IV (11:32)
--- NOTE | 2022-06-28 12:19 | CM ---
Addendum entered by Debi Serrato 06/28/22 12:44:
CM called [facility] at [facility] and updated her on plan. CM sent hospice referral to Hospice in [facility].
Original Note:
KIMBERLY informed by Bonnie that pt will sign on to [facility] hospice today. CM to remain available to pt and family for support.
Plan: [facility] Hospice
--- NOTE | 2022-06-28 14:15 | CHAP ---
Medical Records Coder request relayed to on-call sandwich wrapper. Awaiting call back
--- NOTE | 2022-06-28 16:11 | W.DCSUMMARY ---
Discharge Summary
Discharge Data
Date of Admission: 06/23/22
Date of Discharge: 06/28/22
-
Pending Results: No
Hospital Course
82-year-old male with past medical history significant for permanent atrial fibrillation, systolic and diastolic heart failure, insulin-dependent diabetes, dementia and recurrent urinary tract infections who presented with lethargy,
hypotension and rapid heart rate.
Assessment and plan:
# Acute on chronic systolic and diastolic Heart failure
# moderate bilateral pleural effusions with associated compressive atelectasis at both lung bases
# Acute hypoxic respiratory failure
# Moderate to severe Aortic stenosis (not a candidate for transaortic valve replacement).
At one point, the patient needed BiPAP for oxygen support due to hypoxic respiratory failure, but this was later weaned to 2 liter nasal cannula oxygen support.
He underwent right thoracentesis on 06/25/22 (1000 cc straw colored pleural fluid was removed), and left thoracentesis on 06/26/22 (1250 cc�of straw colored pleural fluid was removed).
Initially he was treated with intravenous Lasix at 40 mg twice daily, but this was later held due to an increase in his serum creatinine.
His echocardiogram obtained this admission noted an ejection fraction of 43%, diastolic�function indeterminate.�Compared to 09/10/2021, his ventricular function is now mildly impaired (ejection fraction from 50-55% to 43%), now he also has mild
mitral stenosis, his mitral regurgitation appears to be worse, and his aortic valve stenosis remains moderate to severe.
He was followed by cardiology during his hospital stay.
# Increased work of breathing with worsening hypoxia on 06/24/22, resolved
# Acute hypoxic respiratory failure
This event was resolved following BiPAP treatment. He was later weaned from BiPAP to 2 liter nasal cannula.
As part of the workup, an arterial blood gas was obtained, which was unrevealing; and repeat COVID and Flu were also obtained, both were negative.
He was covered with antibiotic Zosyn for possible aspiration pneumonia.
# Permanent Atrial fibrillation with hypotension
His heart rate was very difficult to control.
On admission, he was treated with Cardizem drip, and this was later changed to oral metoprolol.
Unfortunately with his hypotension, it was difficult to even give him metoprolol.
With his severe tachycardia and hypotension, the patient was in imminent danger of going into cardiogenic shock, and hospice was discussed with the patient's family.
They agreed to transition him onto inpatient hospice, and understand that therapeutic medication will be discontinued going forward.
# Acute kidney injury on chronic kidney disease stage IIIB
The patient's creatinine remained elevated at 1.6, from baseline 1.3.
The patient was transitioned to inpatient hospice on 06/28/2022.
Therapeutic medications will be discontinued, and comfort medications will be started.
Discharge Plan
-
Patient Disposition: Hospice - Inpatient [facility]
Discharge Orders:
Discharge Patient (As Directed); Ordered 06/28/22
Ordered By: Alexia Mccauley
[2022-06-28 16:53] LABS: Covid-19 RAPID by NAA Negative (Negative)
--- NOTE | 2022-07-01 10:42 | W.HF.CON ---
Heart Failure
- LV Function
Left ventricular function study result: LV Ejection fraction >40%
Ejection Fraction Percentage: 43
- ACEI/ARB/ARNI
Patient already on ACEI/ARB/ARNI: No
Heart Failure ACEI/ARB/ARNI Not Indicated: LV Ejection Fraction > 40%
- Beta Sharyn
Patient already on Evidence Based Beta Sharyn: No
Heart Failure Evidence Based Beta Sharyn Not Indicated: LV Ejection Fraction > 40%
- Aldosterone Antagonist
Patient already on Aldosterone Antagonist: No
Heart Failure Aldosterone Antagonist Not Indicated: LV Ejection Fraction > 35%
- SGLT-2 Inhibitor
Patient already on SGLT-2 Inhibitor: No
Heart Failure SGLT-2 Inhibitor Not Indicated: LV Ejection Fraction >40%
- Afib Anticoagulation
Patient already on Anticoagulation for Afib: No
Heart Failure Afib Anticoagulation Contraindication: Comfort Measures Only
- NYHA CHF Classification
NYHA CHF Classification Level: Class III - Symptoms w/ min exertion, interferes w/ nml daily activity
- ACC/AHA Stage
ACC/AHA Stage: Stage C: Symptomatic Heart Failure
== END 2022-06-28 16:27 | disposition hospice, inpatient (51) | DRG 291 ==
LOC: 2 NORTH 21:34
PROVIDERS: Emergency Medicine; Radiology Vascular & Interventional Radiology; ADMITTING PHYSICIAN Internal Medicine; ATTENDING PHYSICIAN Internal Medicine; CONSULT PHYSICIAN Internal Medicine Cardiovascular Disease; CONSULT PHYSICIAN Radiology Diagnostic Radiology; EMERGENCY PHYSICIAN Emergency Medicine; FAMILY PHYSICIAN Internal Medicine
PROC: 0W993ZZ Drainage of Right Pleural Cavity, Percutaneous Approach (ICD-10-PCS; 2022-06-25)
PROC: 0W9B3ZZ Drainage of Left Pleural Cavity, Percutaneous Approach (ICD-10-PCS; 2022-06-26)
DX: I13.0 Hypertensive heart and chronic kidney disease with heart failure and stage 1 through stage 4 chronic kidney disease, or unspecified chronic kidney disease (principal); I50.43 Acute on chronic combined systolic (congestive) and diastolic (congestive) heart failure; J96.01 Acute respiratory failure with hypoxia; J98.11 Atelectasis; I48.21 Permanent atrial fibrillation; N17.9 Acute kidney failure, unspecified; N39.0 Urinary tract infection, site not specified; J90 Pleural effusion, not elsewhere classified; I08.3 Combined rheumatic disorders of mitral, aortic and tricuspid valves; N18.32 Chronic kidney disease, stage 3b; Z20.822 Contact with and (suspected) exposure to COVID-19; Z79.01 Long term (current) use of anticoagulants
CPT/HCPCS: 32555; 36600; 71045; 71046; 76604; 80048; 80053; 81003; 81015; 82805; 82945; 82962; 83615; 83735; 83880; 83986; 84155; 84157; 84484; 85025; 85027; 87015; 87070; 87077; 87086; 87186; 87205; 87502; 87635; 89051; 92526; 92610; 93005; 93306; 94640; 94660; 94669; 96361; 96374; 97162; 97166; 97530; 97535; 99285; U0005